=== PATIENT | female | born 1975 | race Caucasian/White ===

== ENCOUNTER 2016-07-01 03:04 | Emergency (ER) | payer OTHER ==
[~2016-07-01 03:04] MED LIST: CITA10TA4 PO; MULT1TAB84 PO
[2016-07-01 03:08] VITALS: BP 130/73; PULSE 83; RESP 16; TEMP 98.2; O2SAT 99
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
[2016-07-01] MEDS ORDERED: DICL75TA PO (03:31)
[2016-07-01] MEDS ORDERED: CYCL1TAB29 PO (03:31)
[2016-07-01] MEDS ORDERED: NAPROXEN 500 MG TAB PO ONE (03:45)
[2016-07-01] MEDS ORDERED: CYCLOBENZAPRINE HCL 10 MG TAB PO ONE (03:45)
[2016-07-09] MEDS ORDERED: CITA20TA4 PO ×2 (15:50→15:58)
== END 2016-07-01 03:43 | disposition home or self-care (01) ==
LOC: NEPB 03:04
DX: S20.229A Contusion of unspecified back wall of thorax, initial encounter (principal); S63.501A Unspecified sprain of right wrist, initial encounter; Y35.891A Legal intervention involving other specified means, law enforcement official injured, initial encounter; Y93.F9 Activity, other caregiving; Y92.238 Other place in hospital as the place of occurrence of the external cause; Y99.0 Civilian activity done for income or pay; Y04.2XXA Assault by strike against or bumped into by another person, initial encounter
CPT/HCPCS: 99282